=== PATIENT | male | born 1975 | race Caucasian/White ===

== ENCOUNTER 2017-04-28 16:58 | Emergency (ER) | payer OTHER ==
[~2017-04-28] VITALS: Ht 175.3 cm; Wt 63.1 kg
[~2017-04-28 16:58] MED LIST: BUSP15 PO; QUET200T PO
[2017-04-28 19:58] VITALS: BP 125/74
== END 2017-04-28 20:00 | disposition home or self-care (01) ==
LOC: EMS 16:59
DX: Z76.0 Encounter for issue of repeat prescription (principal); F20.9 Schizophrenia, unspecified; F17.210 Nicotine dependence, cigarettes, uncomplicated; Z88.0 Allergy status to penicillin
CPT/HCPCS: 99283

== ENCOUNTER 2017-05-10 12:49 | Emergency (ER) | payer OTHER ==
[~2017-05-10] VITALS: Ht 177.8 cm; Wt 59.1 kg
[~2017-05-10 12:49] MED LIST changes: -QUET200T PO
[2017-05-10] MEDS ORDERED: BUSP10TA23 PO (13:01)
[2017-05-10] MEDS ORDERED: DIVA125T PO (13:04)
[2017-05-10 13:46] LABS: GLUCOSE,POINT OF CARE 92 MG/DL (70-110)
[2017-05-10 15:19] VITALS: BP 132/90
== END 2017-05-10 16:05 | disposition home or self-care (01) ==
LOC: EMS 12:50
DX: F10.229 Alcohol dependence with intoxication, unspecified (principal); I25.2 Old myocardial infarction; F17.210 Nicotine dependence, cigarettes, uncomplicated; R00.0 Tachycardia, unspecified; Z88.0 Allergy status to penicillin
CPT/HCPCS: 82948; 82962; 99282; 99283